=== PATIENT | female | born 1960 | race Caucasian/White ===

== ENCOUNTER 2016-10-30 17:54 | Emergency (ER) | payer BC, OTHER ==
[~2016-10-30 17:54] MED LIST: ALBUTEROL5 INH; AMIT50 PO; COREG3 PO; CRESTOR20 MG PO; FERROUS SULF325 M1 PO; FISH-EPA1000 MG PO; KDUR10 PO; LIOR10 PO; MAXALT10 MG PO; MCZ25 PO; NORCO1 TA2 PO; SINGULAIR1 PO; TRAZODONE150 MG PO
[2016-10-30 18:58] LABS: BASOPHILS 0.4 %; BASOPHILS ABSOLUTE 0.03 10/3/uL (0.0-0.16); EOSINOPHILS 2.8 %; ER CBC TAT 0 Hrs 03 Mins; HEMATOCRIT 38.3 % (36.0-48.0); HEMOGLOBIN 12.7 g/dL (12.0-16.0); IMMATURE GRANULOCYTES 0.3 %; IMMATURE GRANULOCYTES ABSOLUTE 0.02 10/3/uL (0.0-0.11); LYMPHOCYTES 33.4 %; LYMPHOCYTES ABSOLUTE 2.35 10/3/uL (0.67-4.30); MEAN CORPUSCULAR HEMOGLOB 32.6 pg (26.0-34.0); MEAN PLATELET VOLUME 8.9 fL (9.2-13.0); MONOCYTES 10.1 %; MONOCYTES ABSOLUTE 0.71 10/3/uL (0.21-1.20); NEUTROPHILS ABSOLUTE 3.72 10/3/uL (2.02-8.40); PLATELET COUNT 300 10/3/uL (150-400); RBC DISTRIBUTION WIDTH 13.6 % (12.0-16.0); RED CELL COUNT 3.89 10/6/uL (4.0-5.6)
[2016-10-30 18:59] LABS: MANUAL DIFF NO %; MEAN CORPUS HGB CONC 33.2 g/dL (32.0-36.0); MEAN CORPUSCULAR VOLUME 98.5 fL (80-100)
[2016-10-30 19:06] LABS: INTERNATIONAL NORMAL RATI 1.1 UNITS (-); PARTIAL THROMBO TIME 27.9 SEC (22.5-37.2); PROTIME (NOT ORD) 13.9 SEC (12.0-14.5)
[2016-10-30 19:15] LABS: CHEST PAIN PROFILE TAT 0 Hrs 20 Mins; CHLORIDE, SERUM 105 MMOL/L (96-112); CO2 (CARBON DIOXIDE) 34 MMOL/L (24-34); CREATININE 1.09 MG/DL (0.55-1.02); GFR AFRICAN AMERICAN 66 ML/MIN (>=60); GFR NON AFRICAN AMERICAN 57 ML/MIN (>=60); POTASSIUM, SERUM 4.2 MMOL/L (3.5-5.3); SODIUM, SERUM 145 MMOL/L (135-148); TROPONIN I <0.02 NG/ML (<0.05)
[2016-10-30 19:17] LABS: ACETAMINOPHEN LEVEL (TYLENOL) < 2.0 MCG/ML (10.0-20.0); ALCOHOL < 3 MG/DL (0); BUN (BLOOD UREA NITROGEN) 19 MG/DL (6-23); GLUCOSE, SERUM 87 MG/DL (60-99)
[2016-10-30 19:44] LABS: AMPHETAMINES (NOT ORD) NEG (NEG); BARBITURATES (NOT ORDERED NEG (NEG); BENZODIAZEPINES (NOT ORD) NEG (NEG); CANNABINOIDS (THC) NEG (NEG); COCAINE (NOT ORDERED) NEG (NEG); OPIATES POS (NEG); PHENCYCLIDINE(PCP) NEG (NEG); TRICYCLICS POS (NEG)
[2017-04-05] MEDS ORDERED: L20 PO (17:56)
[2017-04-05] MEDS ORDERED: NEUR600 PO (17:56)
[2017-04-05] MEDS ORDERED: PR12.5 PO (17:57)
[2017-04-05] MEDS ORDERED: PLAVIX PO (17:58)
[2017-04-05] MEDS ORDERED: MOBIC15 MG PO (18:00)
[2017-04-05] MEDS ORDERED: FLEX PO (18:01)
[2017-04-05] MEDS ORDERED: CRESTOR40 MG PO (18:02)
[2017-04-05] MEDS ORDERED: TRAZ100 PO (18:03)
[2017-04-05] MEDS ORDERED: COREG6 PO (18:03)
[2017-04-05] MEDS ORDERED: FLONASE NAS (18:04)
[2017-04-05] MEDS ORDERED: ADVAIR115P PO (18:05)
[2017-04-05] MEDS ORDERED: PROAIR HFA INH (18:05)
[2017-04-05] MEDS ORDERED: NORCO1 TAB PO (18:06)
[2017-04-05] MEDS ORDERED: EZFE 200200 MG PO (18:07)
[2017-04-05] MEDS ORDERED: ASAB PO (18:08)
[2017-04-05] MEDS ORDERED: FIORINALC PO (18:12)
== END 2016-10-30 20:35 | disposition home or self-care (01) ==
LOC: ER 17:54
PROVIDERS: Specialist
DX: J18.9 Pneumonia, unspecified organism (principal); J44.9 Chronic obstructive pulmonary disease, unspecified; E78.5 Hyperlipidemia, unspecified; K21.9 Gastro-esophageal reflux disease without esophagitis; Z95.5 Presence of coronary angioplasty implant and graft; F17.200 Nicotine dependence, unspecified, uncomplicated; Z86.73 Personal history of transient ischemic attack (TIA), and cerebral infarction without residual deficits; Z90.710 Acquired absence of both cervix and uterus; Z88.0 Allergy status to penicillin; Z88.5 Allergy status to narcotic agent; Z79.82 Long term (current) use of aspirin; Z79.899 Other long term (current) drug therapy
CPT/HCPCS: 71010; 80048; 80305; 80307; 83735; 84484; 85025; 85610; 85730; 93005; 99285